=== PATIENT | female | born 1995 | race Caucasian/White ===

== ENCOUNTER → 2022-11-04 | Outpatient (REF) | payer BC | LOC: M LAB REF 13:08 | PROVIDERS: ATTEND Specialist | DX: Z20.828 Contact with and (suspected) exposure to other viral communicable diseases (principal) ==

== ENCOUNTER 2022-11-14 09:20 | Emergency (ER) | payer BC ==
[~2022-11-14] VITALS: Ht 162.6 cm; Wt 67.4 kg
[2022-11-14] MEDS ORDERED: PROMETHAZINE 25MG/ML 1ML VIAL IV ONE (10:00)
[2022-11-14] MEDS ORDERED: NS 2,020 ML in IV 1 EA IV ONE (10:05)
[2022-11-14 10:42] LABS: BASO % 0.6 % (0.0-1.0); EOS % 0.6 % (0.0-3.0); HEMATOCRIT 40.4 % (36.0-47.0); HEMOGLOBIN 13.4 g/dl (12.0-15.5); LYMPH # 1.1 10^3/uL (1.5-5.0); LYMPH % 21.3 % (24.0-44.0); MEAN CORPUSCULAR HEMOGLOBIN 29.6 pg (27.0-33.0); MEAN CORPUSCULAR HGB CONC 33.2 g/dl (32.0-36.5); MEAN CORPUSCULAR VOLUME 89.2 fl (80.0-96.0); MONO # 0.5 10^3/uL (0.0-0.8); MONO % 10.8 % (2.0-8.0); NEUTROPHILS # 3.3 10^3/uL (1.5-8.5); NEUTROPHILS % 66.5 % (36.0-66.0); PLATELET COUNT, AUTOMATED 194 10^3/uL (150-450); RED BLOOD COUNT 4.53 10^6/uL (4.00-5.40); WHITE BLOOD COUNT 4.9 10^3/uL (4.0-10.0)
[2022-11-14] MEDS ORDERED: ISOVUE-370 76% 100ML VIAL As Ordered ONE (10:49)
[2022-11-14 11:07] LABS: ALBUMIN 3.9 G/DL (3.2-5.2); BILIRUBIN,TOTAL 0.3 MG/DL (0.3-1.2); TOTAL PROTEIN 6.6 G/DL (5.7-8.2)
[2022-11-14 11:08] LABS: BILIRUBIN,DIRECT 0.1 MG/DL (<0.4)
[2022-11-14] MEDS ORDERED: ONDANSETRON 4MG 2ML VIAL IV ONE (13:20)
[2022-11-14] MEDS ORDERED: MORPHINE 2 MG/ML 1ML VIAL IV PRN (14:15)
[2022-11-14] MEDS ORDERED: PROM25TA12 PO (16:16)
[2022-11-14 16:24] VITALS: BP 104/52
== END 2022-11-14 16:33 | disposition home or self-care (01) ==
LOC: M ED 09:20
DX: A08.32 Astrovirus enteritis (principal); E06.3 Autoimmune thyroiditis
CPT/HCPCS: 74177; 80047; 80076; 83605; 83690; 84702; 85025; 87507; 93041; 96361; 96374; 96375; 99284; J2270; J2405; J2550